=== PATIENT | male | born 1985 | race Caucasian/White ===

== ENCOUNTER 2017-09-16 22:23 | Emergency (ER) | payer SELFPAY ==
[~2017-09-16] VITALS: Ht 175.3 cm; Wt 85.1 kg
[~2017-09-16 22:23] MED LIST: BACTRIM,SEPT1 TABLET PO; KEFLEX500 MG PO; NOHOMEMEDS; PERCOCET 5/31 TABLET PO
[2017-09-16 23:32] LABS: MCH 31.9 PG (29.0-34.0); MCHC 34.9 G/DL (30.0-36.0); MCV 91.5 FL (86-99); PLATELET COUNT 314 K/uL (156-360); RBC DIS.WIDTH-CV 12.2 % (11.8-14.6); RBC DIS.WIDTH-SD 41.1 % (39-53)
[2017-09-16 23:39] LABS: ALBUMIN 4.9 g/dL (3.2-4.8)
[2017-09-16 23:40] LABS: CHLORIDE 101 mEq/L (99-109); POTASSIUM 3.6 mEq/L (3.7-5.4); SODIUM 139 mEq/L (136-147)
[2017-09-16 23:42] LABS: GLUCOSE 120 mg/dL (70-99)
[2017-09-16 23:44] LABS: TOTAL BILIRUBIN 0.5 mg/dL (0.0-1.0)
[2017-09-16 23:45] LABS: ALKALINE PHOSPHATASE 73 IU/L (3-129); SERUM ETHYL ALCOHOL 203 mg/dL
[2017-09-16 23:46] LABS: GFR ESTIMATE (CALCULATED) > 59 mL/min/ (58.99-99999)
[2017-09-16 23:47] LABS: AST (GOT) 27 IU/L (2-34); UREA NITROGEN (BUN) 12 mg/dL (9-23)
[2017-09-16 23:49] LABS: ALT (GPT) 17 IU/L (3-49); LIPASE 35 U/L (1.0-51.0)
[2017-09-17 00:14] VITALS: BP 112/95
== END 2017-09-17 00:16 | disposition home or self-care (01) ==
LOC: EME 22:23
PROVIDERS: Emergency Medicine
DX: S50.02XA Contusion of left elbow, initial encounter (principal); S50.312A Abrasion of left elbow, initial encounter; F10.129 Alcohol abuse with intoxication, unspecified; Y90.7 Blood alcohol level of 200-239 mg/100 ml; V49.40XA Driver injured in collision with unspecified motor vehicles in traffic accident, initial encounter; Y92.410 Unspecified street and highway as the place of occurrence of the external cause; F31.9 Bipolar disorder, unspecified
CPT/HCPCS: 73080; 80053; 81003; 83690; 85027; 99281; 99284; G0480